=== PATIENT | female | born 1995 | race Caucasian/White ===

== ENCOUNTER 2022-11-18 10:31 | Inpatient (IN) ==
[2022-11-18] MEDS ORDERED: LIDOCAINE 1% LOCAL 20 ML VIAL INFIL PRN (11:34)
[2022-11-18] MEDS ORDERED: OXYTOCIN 30 UNITS/500 ML BAG IV PRN ×2 (11:34)
[2022-11-18] MEDS ORDERED: PENICILLIN G POTASSIUM 6 MU in DEXTROSE 5% 250 ML IV STA (11:41)
--- NOTE | 2022-11-18 11:41 | Obstetrical Progress Note ---
Date of Service November 18, 2022 Assessment & Plan (1) SROM (spontaneous rupture of membranes): Plan: 27yo g1 @ 38 = weeks SROM 2 01;00hrs-Clear fluid +ve Fern and Nitrazine Bedside sono'; cephalic + GBS FHR; CAT1 Ctx; 4-6 Mild intensity VE 1-2/50/post/-3 Discussed starting Pitocin augmentation 'pt agrees Results & Data ([facility]) Vital Signs (Past 12 Hours) Vital Signs Temp Pulse Resp BP 11/18/22 11:29 110 H 135/84 11/18/22 11:18 131 H 133/82 11/18/22 11:08 131 H 134/76 11/18/22 10:58 106 H 140/87 11/18/22 10:41 36.8 C 115 H 20 133/85
[2022-11-18] MEDS: LACTATED RINGER'S 1,000 ML IV PRN ×3 (12:07→19:18)
[2022-11-18 12:10] LABS: Hematocrit (blood only) 33.2 % (37.0-47.0); Hemoglobin 11.6 g/dl (12.0-16.0); Mean Corpuscular Hgb Conc 34.9 g/dL (32.0-36.0); Mean Corpuscular Volume 91.7 fL (80.0-100.0); Mean Platelet Volume 11.5 fL (9.4-12.4); Platelet Count 144 K/uL (130-400); RDW Coefficient of Variation 12.6 % (11.5-14.5); RDW Standard Deviation 41.8 fL (36.4-46.3); Red Blood Count 3.62 M/uL (4.20-5.40); White Blood Count 9.41 K/ul (4.8-10.8)
[2022-11-18] MEDS ORDERED: ePHEDrine sulfate 50 MG/ML AMP ONE (14:42)
[2022-11-18] MEDS ORDERED: SODIUM CHLORIDE 0.9% INJ 10 ML VIAL ONE (14:42)
[2022-11-18] MEDS ORDERED: BUPIVACAINE 0.25% 30 ML VIAL ONE (14:42)
[2022-11-18] MEDS ORDERED: LIDOCAINE 2%/EPINEPHRINE 1:200,000 20 ML SDV ONE (14:42)
[2022-11-18] MEDS ORDERED: fentaNYL citrate 100 MCG/2 ML VIAL ONE (14:42)
[2022-11-18] MEDS ORDERED: fentaNYL 2MCG/ML ROPIVACAINE 1.25MG/ML 100 ML BAG EPI ONE (14:43)
--- NOTE | 2022-11-18 15:33 | Anesthesiology Consultation ---
Date of Service November 18, 2022 Assessment & Plan Chart Review Chart Review: Acceptable Risk for Labor Epidural Consults Requested none History Height/Weight Height: 5 ft 8 in Weight: 75.296 kg Allergies Allergy/AdvReac Type Severity Reaction Status Date / Time No Known Allergies Allergy Unverified 11/18/22 10:54 Medications Home Medications Medication Instructions Recorded Confirmed Last Taken methimazole 15 mg tablet 15 mg PO DAILY 11/18/22 11/18/22 11/17/22 08:00 prenat.vits,machelle,jnh-jsyo-aaqaw 1 tab PO DAILY 11/18/22 11/18/22 11/17/22 08:00 Active Medications Generic Name Dose Route Start Last Admin Trade Name Freq PRN Reason Stop Dose Admin Lactated Ringer's 1,000 mls @ 125 mls/hr 11/18/22 11:34 11/18/22 15:28 Lr IV 11/20/22 11:33 125 mls/hr .Q8H PRN Administration L&D Protocol Protocol Oxytocin 30 units in 500 mls @ 8 mls/hr 11/18/22 11:34 11/18/22 13:55 Pitocin IV 11/20/22 11:33 0.48 units/hr .Q24H PRN 8 mls/hr Labor Induction/Augmentation Titration Protocol 0.48 UNITS/HR Past Medical History Medical History (Updated 11/18/22 @ 11:38 by Stoney Villanueva MD) Anemia Hyperthyroidism Past Surgical History Surgical History (Updated 11/18/22 @ 10:53 by Kathy Barbosa RN) Hx of tonsillectomy Social History Smoking Status: Never smoker Hx Alcohol Use: No Hx Substance Use: No Physical Exam Vital Signs Last Vital Signs Temp 36.8 C 11/18/22 14:55 Pulse 90 11/18/22 15:31 Resp 20 11/18/22 15:30 BP 126/69 11/18/22 15:31 Pulse Ox 98 11/18/22 15:29 Testing Laboratory Results 11/18/22 11:45
[2022-11-18] MEDS: PENICILLIN G POTASSIUM 3 MU in DEXTROSE 5% 100 ML IV PRN ×2 (16:01→20:10)
--- NOTE | 2022-11-18 17:54 | Obstetrical Progress Note ---
Date of Service November 18, 2022 Assessment & Plan (1) SROM (spontaneous rupture of membranes): Plan: Called to evaluate pt with spon decel after bladder cath VE; 5/100/-2 On arrival,FHR was back to baseline Pt was on her left side Pitocin was off Ctx 2-3min Oxygen IVF Plan expectant management for now Admission and Anticipated Discharge Date Admission Date: November 18, 2022 Results & Data ([facility]) Vital Signs (Past 12 Hours) Vital Signs Temp Pulse Resp BP Pulse Ox 11/18/22 17:49 90 100 11/18/22 17:47 93 H 136/55 L 11/18/22 17:44 88 100 11/18/22 17:39 90 100 11/18/22 17:30 20 11/18/22 17:30 20 11/18/22 17:34 108 H 100 11/18/22 17:33 91 H 132/62 11/18/22 17:29 97 H 100 11/18/22 17:24 98 H 100 11/18/22 17:19 94 H 100 11/18/22 17:16 94 H 127/70 11/18/22 17:14 98 H 99 11/18/22 17:09 100 H 100 11/18/22 17:04 97 H 100 11/18/22 17:01 100 H 121/70 11/18/22 17:00 20 11/18/22 17:00 37.3 C 20 11/18/22 16:59 93 H 98 11/18/22 16:54 90 99 11/18/22 16:30 20 11/18/22 16:30 20 11/18/22 16:49 100 H 99 11/18/22 16:47 93 H 118/72 11/18/22 16:44 100 H 99 11/18/22 16:39 106 H 98 11/18/22 16:34 90 97 11/18/22 16:31 101 H 123/61 11/18/22 16:29 84 97 11/18/22 16:24 102 H 98 11/18/22 16:19 86 98 11/18/22 16:17 80 128/63 11/18/22 16:14 90 98 11/18/22 16:09 85 98 11/18/22 16:00 18 11/18/22 16:00 18 11/18/22 16:04 81 98 11/18/22 16:02 80 132/68 11/18/22 15:59 85 98 11/18/22 15:54 95 H 98 11/18/22 15:49 109 H 99 11/18/22 15:44 94 H 98 11/18/22 15:45 85 128/69 11/18/22 15:43 83 126/66 11/18/22 15:41 87 125/65 11/18/22 15:39 99 11/18/22 15:39 91 H 11/18/22 15:39 85 128/63 11/18/22 15:37 86 132/73 11/18/22 15:34 100 H 99 11/18/22 15:35 91 H 124/67 11/18/22 15:33 94 H 125/64 11/18/22 15:30 20 11/18/22 15:30 20 11/18/22 15:31 90 126/69 11/18/22 15:29 98 11/18/22 15:29 96 H 11/18/22 15:29 100 H 123/70 11/18/22 15:27 89 126/74 11/18/22 15:25 85 18 135/87 11/18/22 15:24 83 99 11/18/22 15:23 89 135/82 11/18/22 15:19 83 193/84 H 100 11/18/22 15:11 90 99 11/18/22 15:06 89 100 11/18/22 15:01 86 100 11/18/22 14:55 20 11/18/22 14:55 36.8 C 20 11/18/22 14:56 81 100 11/18/22 14:51 86 100 11/18/22 13:55 77 20 137/78 11/18/22 13:10 18 11/18/22 13:10 36.7 C 18 11/18/22 13:09 85 123/71 11/18/22 12:08 36.7 C 88 20 131/74 11/18/22 11:29 110 H 135/84 11/18/22 11:18 131 H 133/82 11/18/22 11:08 131 H 134/76 11/18/22 10:58 106 H 140/87 11/18/22 10:41 36.8 C 115 H 20 133/85
[2022-11-18] MEDS ORDERED: diphenhydrAMINE 50 MG/ML VIAL IV PRN (20:07)
[2022-11-18] MEDS ORDERED: ONDANSETRON INJ 2 MG/ML 2 ML VIAL IV PRN (20:07)
[2022-11-18] MEDS ORDERED: NALBUPHINE HCL INJ 10 MG/ML AMP IV PRN (20:07)
[2022-11-18] MEDS ORDERED: fentaNYL 2MCG/ML ROPIVACAINE 1.25MG/ML 100 ML BAG EPI PRN (20:07)
[2022-11-18] MEDS ORDERED: NALOXONE HCL 0.4 MG/1 ML VIAL/CARP IV PRN (20:07)
[2022-11-18] MEDS ORDERED: NALOXONE HCL 1 MG in SODIUM CHLORIDE 0.9% 1000ML 1,000 ML IV PRN (20:07)
[2022-11-18] MEDS ORDERED: ePHEDrine sulfate 50 MG/ML AMP IV PRN (20:07)
--- NOTE | 2022-11-18 20:59 | Obstetrical Progress Note ---
Date of Service November 18, 2022 Assessment & Plan (1) SROM (spontaneous rupture of membranes): Plan: Called to evaluate pt with spon decel after bladder cath VE; 5/100/-2 On arrival,FHR was back to baseline Pt was on her left side Pitocin was off Ctx 2-3min Oxygen IVF Plan expectant management for now Admission and Anticipated Discharge Date Admission Date: November 18, 2022 Results & Data ([facility]) Vital Signs (Past 12 Hours) Vital Signs Temp Pulse Resp BP Pulse Ox 11/18/22 18:59 36.9 C 18 11/18/22 20:54 118 H 97 11/18/22 20:49 115 H 96 11/18/22 20:47 111 H 133/66 11/18/22 20:30 18 11/18/22 20:30 18 11/18/22 20:44 120 H 97 11/18/22 20:00 18 11/18/22 20:00 18 11/18/22 20:39 111 H 96 11/18/22 20:34 113 H 97 11/18/22 20:31 122 H 140/70 11/18/22 20:29 113 H 97 11/18/22 20:24 117 H 97 11/18/22 20:19 125 H 96 11/18/22 20:17 115 H 140/69 11/18/22 20:14 114 H 98 11/18/22 20:09 119 H 97 11/18/22 20:04 109 H 98 11/18/22 20:01 110 H 142/71 H 11/18/22 19:59 99 H 98 11/18/22 19:54 110 H 97 11/18/22 19:49 113 H 96 11/18/22 19:48 100 H 114/56 L 11/18/22 19:44 96 H 95 11/18/22 19:39 97 H 97 11/18/22 19:34 102 H 97 11/18/22 19:31 100 H 115/56 L 11/18/22 19:30 20 11/18/22 19:30 20 11/18/22 19:29 103 H 97 11/18/22 19:24 104 H 98 11/18/22 19:19 101 H 98 11/18/22 19:18 99 H 116/56 L 11/18/22 19:14 107 H 97 11/18/22 19:09 104 H 98 11/18/22 19:04 107 H 99 11/18/22 19:03 108 H 132/61 11/18/22 19:00 20 11/18/22 19:00 20 11/18/22 18:59 109 H 100 11/18/22 18:54 117 H 100 11/18/22 18:49 108 H 100 11/18/22 18:46 110 H 121/64 11/18/22 18:44 106 H 100 11/18/22 18:39 102 H 100 11/18/22 18:34 110 H 100 11/18/22 18:31 100 H 129/66 11/18/22 18:30 20 11/18/22 18:30 20 11/18/22 18:29 96 H 100 11/18/22 18:00 20 11/18/22 18:00 20 11/18/22 18:24 95 H 100 11/18/22 18:19 88 100 11/18/22 18:16 86 119/59 L 11/18/22 18:14 86 100 11/18/22 18:09 89 100 11/18/22 18:04 87 100 11/18/22 18:02 83 117/59 L 11/18/22 17:59 90 100 11/18/22 17:54 90 100 11/18/22 17:49 90 100 11/18/22 17:47 93 H 136/55 L 11/18/22 17:44 88 100 11/18/22 17:39 90 100 11/18/22 17:30 20 11/18/22 17:30 20 11/18/22 17:34 108 H 100 11/18/22 17:33 91 H 132/62 11/18/22 17:29 97 H 100 11/18/22 17:24 98 H 100 11/18/22 17:19 94 H 100 11/18/22 17:16 94 H 127/70 11/18/22 17:14 98 H 99 11/18/22 17:09 100 H 100 11/18/22 17:04 97 H 100 11/18/22 17:01 100 H 121/70 11/18/22 17:00 20 11/18/22 17:00 37.3 C 20 11/18/22 16:59 93 H 98 11/18/22 16:54 90 99 11/18/22 16:30 20 11/18/22 16:30 20 11/18/22 16:49 100 H 99 11/18/22 16:47 93 H 118/72 11/18/22 16:44 100 H 99 11/18/22 16:39 106 H 98 11/18/22 16:34 90 97 11/18/22 16:31 101 H 123/61 11/18/22 16:29 84 97 11/18/22 16:24 102 H 98 11/18/22 16:19 86 98 11/18/22 16:17 80 128/63 11/18/22 16:14 90 98 11/18/22 16:09 85 98 11/18/22 16:00 18 11/18/22 16:00 18 11/18/22 16:04 81 98 11/18/22 16:02 80 132/68 11/18/22 15:59 85 98 11/18/22 15:54 95 H 98 11/18/22 15:49 109 H 99 11/18/22 15:44 94 H 98 11/18/22 15:45 85 128/69 11/18/22 15:43 83 126/66 11/18/22 15:41 87 125/65 11/18/22 15:39 99 11/18/22 15:39 91 H 11/18/22 15:39 85 128/63 11/18/22 15:37 86 132/73 11/18/22 15:34 100 H 99 11/18/22 15:35 91 H 124/67 11/18/22 15:33 94 H 125/64 05 15:30 20 11/18/22 15:30 20 11/18/22 15:31 90 126/69 05 15:29 98 11/18/22 15:29 96 H 11/18/22 15:29 100 H 123/70 05 15:27 89 126/74 05 15:25 85 18 135/87 11/18/22 15:24 83 99 05 15:23 89 135/82 05 15:19 83 193/84 H 100 05 15:11 90 99 11/18/22 15:06 89 100 03/05/23 15:01 86 100 11/18/22 14:55 20 11/18/22 14:55 36.8 C 20 11/18/22 14:56 81 100 11/18/22 14:51 86 100 11/18/22 13:55 77 20 137/78 11/18/22 13:10 18 11/18/22 13:10 36.7 C 18 11/18/22 13:09 85 123/71 11/18/22 12:08 36.7 C 88 20 131/74 11/18/22 11:29 110 H 135/84 11/18/22 11:18 131 H 133/82 11/18/22 11:08 131 H 134/76 11/18/22 10:58 106 H 140/87 11/18/22 10:41 36.8 C 115 H 20 133/85
--- NOTE | 2022-11-18 21:01 | Obstetrical Progress Note ---
Date of Service November 18, 2022 Assessment & Plan (1) SROM (spontaneous rupture of membranes): Plan: Pt doing well FHr CAT1 ctx 2-3mins Ve 10/100/0 station Pt has no urge to push passive descent will push when pt has urge to do so Admission and Anticipated Discharge Date Admission Date: November 18, 2022 Results & Data ([facility]) Vital Signs (Past 12 Hours) Vital Signs Temp Pulse Resp BP Pulse Ox 11/18/22 18:59 36.9 C 18 11/18/22 20:54 118 H 97 11/18/22 20:49 115 H 96 11/18/22 20:47 111 H 133/66 11/18/22 20:30 18 11/18/22 20:30 18 11/18/22 20:44 120 H 97 11/18/22 20:00 18 11/18/22 20:00 18 11/18/22 20:39 111 H 96 11/18/22 20:34 113 H 97 11/18/22 20:31 122 H 140/70 11/18/22 20:29 113 H 97 11/18/22 20:24 117 H 97 11/18/22 20:19 125 H 96 11/18/22 20:17 115 H 140/69 11/18/22 20:14 114 H 98 11/18/22 20:09 119 H 97 11/18/22 20:04 109 H 98 11/18/22 20:01 110 H 142/71 H 11/18/22 19:59 99 H 98 11/18/22 19:54 110 H 97 11/18/22 19:49 113 H 96 11/18/22 19:48 100 H 114/56 L 11/18/22 19:44 96 H 95 11/18/22 19:39 97 H 97 11/18/22 19:34 102 H 97 11/18/22 19:31 100 H 115/56 L 11/18/22 19:30 20 11/18/22 19:30 20 11/18/22 19:29 103 H 97 11/18/22 19:24 104 H 98 11/18/22 19:19 101 H 98 11/18/22 19:18 99 H 116/56 L 11/18/22 19:14 107 H 97 11/18/22 19:09 104 H 98 11/18/22 19:04 107 H 99 11/18/22 19:03 108 H 132/61 11/18/22 19:00 20 11/18/22 19:00 20 11/18/22 18:59 109 H 100 11/18/22 18:54 117 H 100 11/18/22 18:49 108 H 100 11/18/22 18:46 110 H 121/64 11/18/22 18:44 106 H 100 11/18/22 18:39 102 H 100 11/18/22 18:34 110 H 100 11/18/22 18:31 100 H 129/66 11/18/22 18:30 20 11/18/22 18:30 20 11/18/22 18:29 96 H 100 11/18/22 18:00 20 11/18/22 18:00 20 11/18/22 18:24 95 H 100 11/18/22 18:19 88 100 11/18/22 18:16 86 119/59 L 11/18/22 18:14 86 100 11/18/22 18:09 89 100 11/18/22 18:04 87 100 11/18/22 18:02 83 117/59 L 11/18/22 17:59 90 100 11/18/22 17:54 90 100 11/18/22 17:49 90 100 11/18/22 17:47 93 H 136/55 L 11/18/22 17:44 88 100 11/18/22 17:39 90 100 11/18/22 17:30 20 11/18/22 17:30 20 11/18/22 17:34 108 H 100 11/18/22 17:33 91 H 132/62 11/18/22 17:29 97 H 100 11/18/22 17:24 98 H 100 11/18/22 17:19 94 H 100 11/18/22 17:16 94 H 127/70 11/18/22 17:14 98 H 99 11/18/22 17:09 100 H 100 11/18/22 17:04 97 H 100 11/18/22 17:01 100 H 121/70 11/18/22 17:00 20 11/18/22 17:00 37.3 C 20 11/18/22 16:59 93 H 98 11/18/22 16:54 90 99 11/18/22 16:30 20 11/18/22 16:30 20 11/18/22 16:49 100 H 99 11/18/22 16:47 93 H 118/72 11/18/22 16:44 100 H 99 11/18/22 16:39 106 H 98 11/18/22 16:34 90 97 11/18/22 16:31 101 H 123/61 11/18/22 16:29 84 97 11/18/22 16:24 102 H 98 11/18/22 16:19 86 98 11/18/22 16:17 80 128/63 11/18/22 16:14 90 98 11/18/22 16:09 85 98 11/18/22 16:00 18 11/18/22 16:00 18 11/18/22 16:04 81 98 11/18/22 16:02 80 132/68 11/18/22 15:59 85 98 11/18/22 15:54 95 H 98 11/18/22 15:49 109 H 99 11/18/22 15:44 94 H 98 11/18/22 15:45 85 128/69 11/18/22 15:43 83 126/66 11/18/22 15:41 87 125/65 05 15:39 99 11/18/22 15:39 91 H 11/18/22 15:39 85 128/63 11/18/22 15:37 86 132/73 11/18/22 15:34 100 H 99 11/18/22 15:35 91 H 124/67 11/18/22 15:33 94 H 125/64 05 15:30 20 11/18/22 15:30 20 11/18/22 15:31 90 126/69 11/18/22 15:29 98 05 15:29 96 H 05 15:29 100 H 123/70 05 15:27 89 126/74 05 15:25 85 18 135/87 05 15:24 83 99 11/18/22 15:23 89 135/82 11/18/22 15:19 83 193/84 H 100 11/18/22 15:11 90 99 11/18/22 15:06 89 100 11/18/22 15:01 86 100 11/18/22 14:55 20 11/18/22 14:55 36.8 C 20 11/18/22 14:56 81 100 11/18/22 14:51 86 100 11/18/22 13:55 77 20 137/78 11/18/22 13:10 18 11/18/22 13:10 36.7 C 18 11/18/22 13:09 85 123/71 11/18/22 12:08 36.7 C 88 20 131/74 11/18/22 11:29 110 H 135/84 11/18/22 11:18 131 H 133/82 11/18/22 11:08 131 H 134/76 11/18/22 10:58 106 H 140/87 11/18/22 10:41 36.8 C 115 H 20 133/85
[2022-11-19] MEDS ORDERED: OXYTOCIN 30 UNITS/500 ML BAG IV PRN (00:09)
[2022-11-19] MEDS ORDERED: BENZOCAINE 20% AER SPR 82.5 GM CAN EXT PRN (00:09)
[2022-11-19] MEDS ORDERED: HYDROCORTISONE ACETATE 25 MG SUPP PR PRN (00:09)
[2022-11-19] MEDS ORDERED: ACETAMINOPHEN 325 MG TAB PO PRN (00:09)
[2022-11-19] MEDS ORDERED: bisacodyL 10 MG SUPP PR PRN (00:09)
[2022-11-19] MEDS ORDERED: DIPHTHERIA/TETANUS/PERTUSSIS 0.5mL SYR/VIAL (Age 7+yrs) IM ONE (00:09)
[2022-11-19] MEDS: IBUPROFEN 600 MG TAB PO PRN ×3 (01:22→12:35)
--- NOTE | 2022-11-19 02:31 | Delivery Summary ---
DELIVERY NOTE DATE OF DELIVERY: 11/18/2022. DELIVERY NOTE: The patient delivered a live in left occiput anterior presentation. There was no nuchal cord. Infant was delivered and placed on mother's abdomen. Delayed cord clamp was performed. 's w eight is pending, Apgars 8 and 9. Cord blood was obtained. Placenta spontaneously delivered. Inspe ction of the placenta shows normal looking placenta with 3-vessel cord. Inspection of the perineum s howed a second-degree midline laceration, which was repaired in layers with 2-0 Vicryl. Rectal exam post repair showed good sphincter tone. No sutures are palpated in the rectum. Estimated blood loss was 400 mL. All instruments were removed from the vagina and accounted for x2 i ncluding sponges, needles, and retractors. The patient was stable to recovery. Job ID: [id number]
[2022-11-19] MEDS: PRENATAL VITAMIN 1 TAB PO SCH (08:27)
[2022-11-19] MEDS: DOCUSATE SODIUM 100 MG CAP PO SCH ×2 (08:27→19:31)
--- NOTE | 2022-11-19 11:55 | Anesthesia Procedure Note ---
Date of Service November 19, 2022 Anesthesia Post Epidural Note Vital Signs Vital Signs: Temp Pulse Resp BP Pulse Ox O2 Del Method 36.4 C L 83 16 111/64 97 Room Air 11/19/22 08:15 11/19/22 08:15 11/19/22 08:15 11/19/22 08:15 11/19/22 08:15 11/19/22 08:15 Pain Intensity Bilateral Abdomen: Pain Intensity: 3 Notes Mental Status: alert / awake / arousable and participated in evaluation Nausea / Vomiting: adequately controlled Pain: adequately controlled Airway Patency, RR, SpO2: stable & adequate BP & HR: stable & adequate Hydration State: stable & adequate Neuraxial Anesthesia: was administered and sensory block resolved Anesthetic Complications: no major complications apparent Epidural: Removed without complications and With tip intact
[2022-11-20] MEDS: IBUPROFEN 600 MG TAB PO PRN ×4 (00:42→22:13)
[2022-11-20 06:58] LABS: Hematocrit (blood only) 25.3 % (37.0-47.0); Hemoglobin 8.7 g/dl (12.0-16.0); Mean Corpuscular Hemoglobin 31.6 pg (25.0-34.0); Mean Corpuscular Hgb Conc 34.4 g/dL (32.0-36.0); Mean Platelet Volume 11.2 fL (9.4-12.4); Platelet Count 134 K/uL (130-400); RDW Coefficient of Variation 12.9 % (11.5-14.5); RDW Standard Deviation 42.8 fL (36.4-46.3); Red Blood Count 2.75 M/uL (4.20-5.40); White Blood Count 11.12 K/ul (4.8-10.8)
[2022-11-20] MEDS: PRENATAL VITAMIN 1 TAB PO SCH (08:27)
[2022-11-20] MEDS: DOCUSATE SODIUM 100 MG CAP PO SCH ×2 (08:27→19:29)
--- NOTE | 2022-11-20 10:30 | Obstetrical Progress Note ---
Date of Service November 20, 2022 Assessment & Plan (1) Normal course: PPD #1 pt doing well anticipate disch tomorrow Results & Data ([facility]) Vital Signs (Past 12 Hours) Vital Signs Temp Pulse Resp BP Pulse Ox O2 Del Method 11/20/22 07:37 36.6 C 86 18 117/80 98 Room Air 11/20/22 00:30 36.6 C 84 16 120/71 97 Room Air
[2022-11-20] MEDS ORDERED: bisacodyL 5 MG TABEC PO SCH (20:00)
[2022-11-21] MEDS: IBUPROFEN 600 MG TAB PO PRN ×2 (04:14→09:08)
[2022-11-21 06:38] LABS: Hematocrit (blood only) 24.5 % (37.0-47.0); Hemoglobin 8.4 g/dl (12.0-16.0)
--- NOTE | 2022-11-21 06:58 | Obstetrical Progress Note ---
Addendum; Pt stayed one more day because of her anemia due to blood loss from vaginal delivery she was observed for any change in vitals signs ans symptoms Date of Service November 21, 2022 Results & Data ([facility]) Vital Signs (Past 12 Hours) Vital Signs Temp Pulse Resp BP Pulse Ox O2 Del Method 11/21/22 00:45 36.9 C 88 18 122/77 96 Room Air 11/20/22 19:15 36.7 C 88 18 120/73 100 Room Air 11/20/22 19:15 Room Air
--- NOTE | 2022-11-21 07:02 | Obstetrical Progress Note ---
Date of Service November 21, 2022 Assessment & Plan (1) Anemia, : Pt doing well No SOB, light headedness ot fatigue Repeat Hemoglobin is 8 but pt is asymptomatic will d/c home on iron tabs Results & Data ([facility]) Vital Signs (Past 12 Hours) Vital Signs Temp Pulse Resp BP Pulse Ox O2 Del Method 11/21/22 00:45 36.9 C 88 18 122/77 96 Room Air 11/20/22 19:15 36.7 C 88 18 120/73 100 Room Air 11/20/22 19:15 Room Air
[2022-11-21] MEDS: PRENATAL VITAMIN 1 TAB PO SCH (09:08)
[2022-11-21] MEDS: DOCUSATE SODIUM 100 MG CAP PO SCH (09:08)
== END 2022-11-21 14:50 | disposition home or self-care (01) | DRG 806 ==
LOC: OPB 10:31 → 4S1 10:36 → 4E2 11-19 02:34